=== PATIENT | female | born 1990 | race Caucasian/White ===

== ENCOUNTER 2020-05-17 14:04 | Inpatient (IN) ==
[2020-05-17] MEDS ORDERED: Lactated Ringers 1000 ml BAG 1,000 ML IV ONE ×2 (14:22→15:27)
[2020-05-17] MEDS ORDERED: Buffered Lidocaine 1% SYRIN 1 ml INTRADERM ONE (14:22)
[2020-05-17] MEDS ORDERED: OBEPIDURAL 250 ML EPIDURAL ONE (14:53)
[2020-05-17 14:57] LABS: Mean Corpuscular Volume 74 fL (80-97)
[2020-05-17 14:59] LABS: ABS Lymphocytes 1.6 10^3/ul (1.0-4.8); ABS Neutrophils 19.5 10^3/ul (1.5-7.7); Hematocrit 33 % (35-47); Hemoglobin 10.9 g/dL (12.0-16.0); Mean Corpuscular HGB Conc 33 g/dL (31-36); Mean Corpuscular Hemoglobin 24 pg (27-31); Platelet Count 327 10^3/uL (150-450); Red Cell Distribution Width 14 % (10-15); White Blood Count 22.1 10^3/uL (3.5-10.8)
[2020-05-17 15:00] LABS: Lymphocyte % 7.1 %
[2020-05-17] MEDS ORDERED: Lactated Ringers 1000 ml BAG 1,000 ML IV SCH ×2 (15:00→16:00)
[2020-05-17] MEDS ORDERED: Phenylephrine 40 mcg/mL 10mL (400mcg) SYRINGE IV PUSH PRN ×2 (15:27)
[2020-05-17] MEDS ORDERED: Sodium Citrate/Citric Acid LIQ 15 ML UDC PO PRN (15:27)
[2020-05-17] MEDS ORDERED: OBEPIDURAL 250 ML EPIDURAL SCH (16:00)
[2020-05-17 17:41] LABS: Urine Benzodiazepine Screen None Detected (None Detect); Urine Cannabinoids Screen None Detected (None Detect); Urine Opiates Screen None Detected (None Detect)
[2020-05-17] MEDS ORDERED: ceFOXitin 2 GM IVPREMIX 2 GM/50 ML BAG IVPB ONE (21:11)
[2020-05-17] MEDS ORDERED: Sodium Citrate/Citric Acid LIQ 15 ML UDC PO ONE (21:12)
[2020-05-17] MEDS ORDERED: ceFOXitin 2 GM IVPREMIX 2 GM/50 ML BAG ONE (21:14)
[2020-05-17] MEDS ORDERED: Chloroprocaine 3% 20 ml VIAL ONE (21:41)
[2020-05-17] MEDS ORDERED: Oxytocin 10 UNITS/ML 1 ML VIAL ONE (21:41)
[2020-05-17] MEDS ORDERED: Lidocaine 2% w/ EPI 1:200,000 MPF 20 ML SDV VIAL ONE (22:04)
[2020-05-17] MEDS ORDERED: diPHENhydraMINE IV 50 MG/ML 1 ml VIAL (BENADRYL) ONE (22:18)
[2020-05-17] MEDS ORDERED: fentaNYL 100 mcg/2 ml 50 MCG/ML VIAL ONE (22:18)
[2020-05-17] MEDS ORDERED: Ondansetron 4 mg VIAL 2 MG/ML 2 ml VIAL ONE (22:40)
[2020-05-17] MEDS ORDERED: Dexamethasone IV 4 MG/ML VIAL 1 ml VIAL ONE (22:40)
[2020-05-17] MEDS ORDERED: Naloxone 0.4 mg VIAL 0.4 mg/ml 1 ml VIAL IV PRN ×2 (22:58→23:26)
[2020-05-17] MEDS ORDERED: fentaNYL 100 mcg/2 ml 50 MCG/ML VIAL IV PRN (22:58)
[2020-05-17] MEDS ORDERED: Bupivacaine 0.25% SDV PF 10 ML VIAL INJ ONE (23:04)
[2020-05-17] MEDS ORDERED: Morphine PF AMP (0.5MG/ML) 5 MG/10 ML AMP ONE (23:04)
[2020-05-17] MEDS ORDERED: HYDROcodone/ACETAMIN 5/325 mg TAB PO PRN (23:26)
[2020-05-17] MEDS ORDERED: diPHENhydraMINE IV 50 MG/ML 1 ml VIAL (BENADRYL) IV PRN (23:26)
[2020-05-17] MEDS ORDERED: Ondansetron 4 mg VIAL 2 MG/ML 2 ml VIAL IV PRN (23:26)
[2020-05-17] MEDS ORDERED: DiMENhydriNATE IV 50 mg/ml 1 ml VIAL IV PUSH PRN (23:26)
[2020-05-17] MEDS ORDERED: Glycerin ADULT 2.4 gm SUPP PR PRN (23:30)
[2020-05-17] MEDS ORDERED: Tetan/Diph/Pertus SYR(Tdap) 0.5 ML SYR(BOOSTRIX) use SYR contains LATEX IM ONE (23:30)
[2020-05-17] MEDS ORDERED: Dibucaine 1% OINT 28.35 GM TUBE PR PRN (23:30)
[2020-05-17] MEDS ORDERED: Witch Hazel PAD JAR TOPICAL PRN (23:30)
[2020-05-17] MEDS ORDERED: RHO D Immune Globulin (HUMAN) 300 MCG = 1,500 I.U. INJ IM PRN (23:30)
[2020-05-17] MEDS ORDERED: Oxytocin in LR 20 UNITS/1,000 ML BAG IVPB SCH (23:45)
[2020-05-18 06:43] LABS: ABS Lymphocytes 1.2 10^3/ul (1.0-4.8); ABS Monocytes 0.8 10^3/ul (0-0.8); ABS Neutrophils 15.4 10^3/ul (1.5-7.7); Hematocrit 26 % (35-47); Hemoglobin 8.5 g/dL (12.0-16.0); Lymphocyte % 6.8 %; Mean Corpuscular HGB Conc 33 g/dL (31-36); Mean Corpuscular Hemoglobin 25 pg (27-31); Mean Corpuscular Volume 75 fL (80-97); Mean Platelet Volume 8.5 fL (7.4-10.4); Platelet Count 234 10^3/uL (150-450); Red Blood Count 3.47 10^6 /uL (3.70-4.87); Red Cell Distribution Width 14 % (10-15); White Blood Count 17.4 10^3/uL (3.5-10.8)
[2020-05-20 07:57] VITALS: BP 121/78
[2020-05-20] MEDS ORDERED: IRON PO SCH (09:00)
== END 2020-05-20 15:14 | disposition home or self-care (01) | DRG 540 ==
LOC: MCHOBOUT 14:04 → MCHOB 14:15
PROVIDERS: ADMIT Obstetrics & Gynecology; ATTEND Obstetrics & Gynecology

== ENCOUNTER 2023-07-22 12:48 | Inpatient (IN) ==
[2023-07-22] MEDS ORDERED: Prochlorperazine 5 mg/ml 2 ml VIAL (10 mg) IV PRN (13:45)
[2023-07-22] MEDS ORDERED: Lidocaine 1% VIAL 10 MG/ML 30 ML VIAL INJ PRN (13:45)
[2023-07-22 14:30] LABS: Hematocrit 29.9 % (35-45); Hemoglobin 9.9 g/dL (11.5-14.3); Mean Corpuscular Hemoglobin 24.9 pg (27-33); Mean Corpuscular Hgb Conc 33.2 g/dL (31-36); Platelet Count 283 10^3/uL (150-450); Red Blood Count 3.99 10^6/uL (3.63-4.92); Red Cell Distribution Width 17.4 % (12-17); White Blood Count 10.8 10^3/uL (3.8-11.8)
[2023-07-22 15:10] LABS: ABS Eosinophils 0.1 10^3/uL (0.0-0.5); ABS Lymphocytes 1.8 10^3/uL (1.0-4.8); ABS Monocytes 0.6 10^3/uL (0.0-0.9); ABS Neutrophils 8.3 10^3/uL (1.5-7.6); ABS Nucleated RBC 0.02 10^3/ul; Eosinophil % 1.3 %; Lymphocyte % 16.2 %; Nucleated Red Blood Cells % 0.2 %/100WBC (0.0-0.8)
[2023-07-22 15:37] LABS: Urine Benzodiazepine Screen None Detected (None Detect); Urine Cannabinoids Screen None Detected (None Detect); Urine Opiates Screen None Detected (None Detect)
[2023-07-22] MEDS: Lactated Ringers 1000 ml BAG 1,000 ML IV ONE (16:45)
[2023-07-22] MEDS ORDERED: fentaNYL 100 mcg/2 ml 50 MCG/ML VIAL ONE ×2 (18:32→23:14)
[2023-07-22] MEDS: OBEPIDURAL (200 ML) 200 ML EPIDURAL ONE (19:00)
[2023-07-22] MEDS: Lactated Ringers 1000 ml BAG 1,000 ML IV SCH (19:06)
[2023-07-22] MEDS ORDERED: Phenylephrine 40 mcg/mL 10mL (400mcg) SYRINGE IV PUSH PRN ×2 (19:18)
[2023-07-22] MEDS ORDERED: Sodium Citrate/Citric Acid LIQ 15 ML UDC PO PRN (19:18)
[2023-07-22 20:01] LABS: Urine Appearance Clear; Urine Bilirubin Negative (Negative); Urine Blood Negative (Negative); Urine Color Light-Yellow; Urine Glucose Negative (Negative); Urine Ketones 4+ (Negative); Urine Nitrite Negative (Negative); Urine Protein Trace (Negative); Urine Urobilinogen Negative (Negative)
[2023-07-22] MEDS: Lidocaine 1.5% EPI 1:200,000 30 ML SDV ONE (20:38)
[2023-07-22] MEDS ORDERED: Bupivacaine 0.25% SDV PF 10 ML VIAL INJ ONE (23:14)
[2023-07-23] MEDS ORDERED: Morphine PF AMP (0.5MG/ML) 5 MG/10 ML AMP ONE (01:19)
[2023-07-23] MEDS ORDERED: Oxytocin 10 UNITS/ML 1 ML VIAL ONE (01:19)
[2023-07-23] MEDS ORDERED: Ondansetron 4 mg VIAL 2 MG/ML 2 ml VIAL ONE (01:19)
[2023-07-23] MEDS ORDERED: Phenylephrine IV 10 MG/ML 1 ml VIAL ONE (01:19)
[2023-07-23] MEDS ORDERED: Bupivacaine-MPF SPINAL 7.5 MG/ML - 2ML AMP ONE (01:22)
[2023-07-23] MEDS: Sodium Citrate/Citric Acid LIQ 15 ML UDC PO ONE (01:28)
[2023-07-23] MEDS: ceFOXitin 2 GM IVPREMIX 2 GM/50 ML BAG IVPB ONE (01:55)
[2023-07-23] MEDS ORDERED: Naloxone 0.4 mg VIAL 0.4 mg/ml 1 ml VIAL IV PUSH PRN (02:20)
[2023-07-23] MEDS ORDERED: Ondansetron 4 mg VIAL 2 MG/ML 2 ml VIAL IV PRN (02:20)
[2023-07-23] MEDS ORDERED: Metoclopramide 5 MG/ML VIAL (10 mg) IV PRN (02:20)
[2023-07-23] MEDS ORDERED: Acetaminophen IV 1 GM/100ML 1,000 MG/100 ML BAG IV PRN (02:20)
[2023-07-23] MEDS ORDERED: RHO D Immune Globulin (HUMAN) 300 MCG = 1,500 I.U. INJ IM PRN (02:50)
[2023-07-23] MEDS ORDERED: Witch Hazel PAD JAR TOPICAL PRN (02:50)
[2023-07-23] MEDS ORDERED: Dibucaine 1% OINT 28.35 GM TUBE PR PRN (02:50)
[2023-07-23] MEDS ORDERED: Glycerin ADULT 2.4 gm SUPP PR PRN (02:50)
[2023-07-23] MEDS ORDERED: Lactated Ringers 1000 ml BAG 1,000 ML IV SCH (03:00)
[2023-07-23] MEDS: Lactated Ringers 1000 ml BAG 1,000 ML IV ONE (04:53)
[2023-07-23] MEDS: OBEPIDURAL (200 ML) 200 ML EPIDURAL SCH (04:53)
[2023-07-23] MEDS: Oxytocin in LR 20,000 MILLI.UNIT/1,000 ML BAG IV SCH (05:12)
[2023-07-23] MEDS: Buffered Lidocaine 1% SYRIN 1 ml INTRADERM ONE (15:36)
[2023-07-24 07:09] LABS: ABS Eosinophils 0.3 10^3/uL (0.0-0.5); ABS Monocytes 0.9 10^3/uL (0.0-0.9); ABS Neutrophils 10.6 10^3/uL (1.5-7.6); ABS Nucleated RBC 0.01 10^3/ul; Eosinophil % 1.8 %; Hemoglobin 8.1 g/dL (11.5-14.3); Lymphocyte % 14.3 %; Mean Corpuscular Hemoglobin 24.5 pg (27-33); Mean Corpuscular Hgb Conc 32.4 g/dL (31-36); Mean Corpuscular Volume 75.5 fL (80-97); Mean Platelet Volume 7.8 fL (7.5-11.2); Platelet Count 214 10^3/uL (150-450); Red Blood Count 3.31 10^6/uL (3.63-4.92); Red Cell Distribution Width 17.4 % (12-17); White Blood Count 13.7 10^3/uL (3.8-11.8)
[2023-07-25 09:31] VITALS: BP 104/54
== END 2023-07-25 12:17 | disposition home or self-care (01) | DRG 540 ==
LOC: MCHOBOUT 12:48 → MCHOB 13:48
PROVIDERS: ADMIT Obstetrics & Gynecology; ATTEND Obstetrics & Gynecology